=== PATIENT | female | born 1955 | race Caucasian/White ===

== ENCOUNTER 2020-10-11 14:03 | Outpatient (CLI) | payer MEDICARE, SELFPAY ==
--- NOTE | ~2020-10-11 | CT_ITS ---
EXAMINATION: CT shoulder RT wo con DATE: 10/11/2020 14:36 INDICATION: Right shoulder instability. TECHNIQUE: Computed tomography (CT) of the right shoulder was performed without intravenous contrast. Automated exposure control and iterative reconstruction technique were employed. The dose-length pro duct was 621.96 mGy-cm. COMPARISON: Right shoulder radiographs 02/14/2006 FINDINGS: There is anterior and superior subluxation of humeral head with respect to glenoid. There i s narrowing of the subacromial region, consistent with rotator cuff tear. Subacromial impingement is noted. There is mild osteoarthritis of glenohumeral joint and severe osteoarthritis of acromioclavicu lar joint. There is a 5 mm loose body in the glenohumeral joint. There is a large glenohumeral joint effusion. There is volume loss and moderate fatty atrophy of subscapularis muscle belly. There is vol ume loss and mild fatty atrophy of supraspinatus and infraspinatus muscle bellies. IMPRESSION: 1. Polyarticular osteoarthritis. 2. Rotator cuff tear. 3. Large glenohumeral joint effusion with loose body. Reviewed, dictated and finalized at location A.
== END 2020-10-11 14:04 | disposition home or self-care (01) ==
LOC: ANHIMG 14:04
PROVIDERS: PCP Nurse Practitioner Adult Health; Visit Provider Orthopaedic Surgery
DX: M19.011 Primary osteoarthritis, right shoulder (principal); M75.101 Unspecified rotator cuff tear or rupture of right shoulder, not specified as traumatic; M25.411 Effusion, right shoulder
CPT/HCPCS: 73200

== ENCOUNTER → 2021-05-09 00:48 | Outpatient (CLI) | payer MEDICARE, SELFPAY ==
[2021-05-10 10:57] LABS: SARS-CoV-2 RNA PCR Negative
== END ==
PROVIDERS: PCP Nurse Practitioner Adult Health; Visit Provider Nurse Practitioner Adult Health
DX: R06.2 Wheezing (principal); Z20.822 Contact with and (suspected) exposure to COVID-19
CPT/HCPCS: C9803; U0003; U0005

== ENCOUNTER 2021-05-10 14:59 | Emergency (ER) | payer MEDICARE, SELFPAY ==
--- NOTE | ~2021-05-10 | XR_ITS ---
EXAMINATION: XR chest 1V portable DATE: 05/10/2021 15:32 INDICATION: Shortness of breath. TECHNIQUE: A single frontal view of the chest was obtained. COMPARISON: CT abdomen and pelvis 02/23/2018 FINDINGS: A calcified right lung nodule is consistent with old granulomatous disease. No pleural effu jasson or pneumothorax. The heart size is normal. IMPRESSION: 1. No acute cardiopulmonary disease. Reviewed, dictated and finalized at location A. L GRINDER
[2021-05-10 15:00] VITALS: BP 158/96; PULSE 84; RESP 22; TEMP 36.6; O2SAT 96
[2021-05-10] MEDS: methylPREDNISolone SOD SUCC 125 MG VIAL IV PUSH (15:34)
[2021-05-10 15:49] LABS: Basophils Percent Auto 0.2 % (0.2-1.2); Hematocrit 45.1 % (37.0-47.0); Hemoglobin 15.3 g/dL (12.0-15.0); Immature Granulocyte Percent A 0.8 % (0-0.5); Lymphocytes Absolute Auto 0.65 K/mm3 (0.9-3.2); Lymphocytes Percent Auto 5.1 % (18.3-44.2); Mean Corpuscular HGB Conc 33.9 g/dl (32-36); Mean Corpuscular Hemoglobin 30.8 pg (26-34); Mean Corpuscular Volume 90.7 fl (80-100); Mean Platelet Volume 10.5 fl (7.4-10.4); Monocytes Absolute Auto 0.6 K/mm3 (0.1-0.6); Monocytes Percent Auto 4.7 % (2.6-8.5); Neutrophils Absolute Auto 11.5 K/mm3 (1.3-6.7); Neutrophils Percent Auto 89.2 % (45.5-73.1); Platelet Count Result 126 k/mm3 (150-375); Red Blood Count 4.97 M/mm3 (4.2-5.4); Red Cell Distribution Width 13.5 % (11.5-14.5); White Blood Count 12.8 K/mm3 (4.5-10.0)
[2021-05-10 16:00] LABS: Alanine Aminotransferase 90 U/L (4-35); Albumin Level 4.1 g/dL (3.5-5.1); Alkaline Phosphatase 67 U/L (38-126); Anion Gap 15 mmol/L (8-16); Aspartate Amino Transferase 34 U/L (14-36); Bilirubin,Total 0.5 mg/dL (0.2-1.3); Blood Urea Nitrogen 36 mg/dL (7-17); Calcium 9.1 mg/dL (8.4-10.2); Carbon Dioxide 21 mmol/L (22-30); Chloride 102 mmol/L (98-107); Estimated CRCL calculation 49 ml/min; Estimated Glomerular Filt Rate 45; Glucose 212 mg/dL (65-110); Potassium 4.5 mmol/L (3.4-5.0); Sodium 138 mmol/L (137-145)
[2021-05-10] MEDS: diphenhydrAMINE HCl INJ 50 MG/ML VIAL 25 MG IV PUSH (16:10)
[2021-05-10 16:12] VITALS: BP 143/90; PULSE 80; RESP 20; O2SAT 95
[2021-05-10] MEDS: SODIUM CHLORIDE 0.9% IV 1,000 ML 999 ML IV CONT (16:59)
[2021-05-10 18:43] VITALS: BP 131/78; PULSE 74; RESP 18; TEMP 36.7; O2SAT 98
--- NOTE | 2021-05-10 19:36 | ED.GENADULT ---
HPI - General Adult General Chief complaint: Allergic Reaction Stated complaint: DIFFICULTY BREATHING Time Seen by Provider: 05/10/21 15:13 Source: patient Mode of arrival: ambulatory Limitations: no limitations History of Present Illness HPI narrative: Patient is a 66-year-old female presented with chief complaint of feelings of shortness of breath, throat irritation and swelling that has progressively worsened over the past 6 days since starting kezvara injection 6 days prior for her rheumatoid arthritis. Patient reports that she contacted her provider and was started on a Medrol Dosepak but it has not remitted her symptoms. Patient reports that she has not been eating or drinking as much as he normally would due to her symptoms. Patient denies fever, chills, cough, wheezing, chest pain, syncope. Related Data Home Medications Medication Instructions Recorded Confirmed amitriptyline 10 mg tablet 10 mg PO ONCE 03/13/19 10/20/20 amlodipine 10 mg tablet 10 mg PO DAILY 03/13/19 10/20/20 coenzyme Q10 100 mg capsule 100 mg PO DAILY 03/13/19 10/20/20 metaxalone 800 mg tablet 800 mg PO TID 03/13/19 10/20/20 nebivolol 10 mg tablet 10 mg PO DAILY 03/13/19 10/20/20 oxybutynin chloride 15 mg 15 mg PO DAILY 03/13/19 10/20/20 tablet,extended release 24 hr vilazodone 40 mg tablet 40 mg PO DAILY 03/13/19 10/20/20 zolpidem 12.5 mg tablet,extended 12.5 mg PO ONCE 03/13/19 10/20/20 release,multiphase atorvastatin 20 mg tablet 20 mg PO DAILY 09/13/20 10/20/20 azathioprine 50 mg tablet 50 mg PO DAILY 09/13/20 10/20/20 celecoxib 200 mg capsule 200 mg PO DAILY 09/13/20 10/20/20 icosapent ethyl 1 gram capsule 2 g PO BID 09/13/20 10/20/20 phentermine 37.5 mg capsule 37.5 mg PO DAILY 09/13/20 10/20/20 Allergies Allergy/AdvReac Type Severity Reaction Status Date / Time hydroxychloroquine Allergy Severe vertigo Verified 05/10/21 15:33 Latex, Natural Rubber Allergy Severe SWELLING Verified 05/10/21 15:33 WITH CONTACT methotrexate Allergy Severe Cramping Verified 05/10/21 15:33 of the Muscles tramadol Allergy Severe Vomiting Verified 05/10/21 15:33 latex Allergy Unknown Swelling Verified 05/10/21 15:33 shellfish derived Allergy Unknown Hives Verified 05/10/21 15:33 sulfasalazine Allergy Unknown Cramping Verified 05/10/21 15:33 of the Muscles Contrast Media Allergy Intermediate HIVES, Uncoded 05/10/21 15:03 REDNESS, TROUBLE BREATHING Review of Systems Review of Systems: CONSTITUTIONAL: Denies fever, chills, or sweats. EYES: Denies visual changes, redness, or discharge. ENT: Reports sore throat denies rhinorrhea, congestion, or otalgia. CARDIOVASCULAR: Denies chest pain, palpitations, or edema. RESPIRATORY: Reports dyspnea denies cough GASTROINTESTINAL: Denies abdominal pain, nausea, vomiting, or diarrhea. GENITOURINARY: Denies dysuria or hematuria. SKIN: Denies rash or itching. MUSCULOSKELETAL: Denies back pain, joint pain, or myalgia. NEUROLOGIC: Denies headache, numbness, dizziness, or weakness. PSYCHIATRIC: Denies anxiety or depression. [facility] Past Medical History Medical History (Updated 05/10/21 @ 18:10 by Gil Campbell PA-C) ALETA positive Anxiety Arthritis Counseling on health promotion and disease prevention Depression Encounter for medication management Fibromyalgia Generalized osteoarthritis of multiple sites Hypertension Rheumatoid arthritis with rheumatoid factor of multiple sites without organ or systems involvement (~2017) Surgical History Surgical History H/O: hysterectomy History of biopsy of bladder Family History Family History Father Heart disease Emphysema lung Grandparent Heart disease Mother Heart disease Macular degeneration Dementia Cerebrovascular accident Emphysema lung Social History Social History (Reviewed 12/09/19 @ 14:14 by Efrem Keating
== END 2021-05-10 18:43 | disposition home or self-care (01) ==
PROVIDERS: Physician Assistant; Emergency Provider Emergency Medicine; PCP Nurse Practitioner Adult Health
DX: R06.02 Shortness of breath (principal); R07.0 Pain in throat; T50.995A Adverse effect of other drugs, medicaments and biological substances, initial encounter; M06.9 Rheumatoid arthritis, unspecified; I10 Essential (primary) hypertension; M19.90 Unspecified osteoarthritis, unspecified site; M79.7 Fibromyalgia; F32.A Depression, unspecified; F41.9 Anxiety disorder, unspecified
CPT/HCPCS: 36415; 71045; 80053; 85025; 96361; 96374; 96375; 99284; J1200; J2930; J7030

== ENCOUNTER 2021-12-21 14:41 | Outpatient (CLI) | payer MEDICARE, SELFPAY ==
--- NOTE | 2021-12-21 | ECHO_ITS ---
Patient Info Name: Evelia Wadsworth Age: 66 years : 1955 Gender: Female Ht: 63 in Wt: 258 lbs BSA: 2.35 m2 HR: 66 bpm BP: 148 / 69 mmHg Heart Rhythm: Sinus Rhythm Technical Quality: Fair Exam Date: 12/21/2021 3:03 PM Exam Location: [facility] Pul[facility] Patient Status: Outpatient Admit Date: 12/21/2021 Staff Ordering Physician: JuanMaya NP Insulation Cutter: Rebekah Chisholm RDCS Attending Provider: JuanMaya NP Exam Type: CA echo doppler color flow Study Info Indications R60.0 - Localized edema Complete two-dimensional, color flow and Doppler transthoracic echocardiogram is performed. Summary 1. Complete two-dimensional, color flow and Doppler transthoracic echocardiogram is performed. 2. Left ventricular chamber dimension is normal. 3. Left ventricular systolic function is normal, estimated at 65-70%. 4. The left ventricular diastolic function is grade I diastolic dysfunction. 5. E/e' 21 is elevated. 6. There is mild aortic valve sclerosis. 7. There is mild aortic valve stenosis with a peak velocity of 198 cm/s, mean gradient of 8 mmHg, and aortic valve area of 1.9 cm2. 8. The mitral valve has moderately calcified annulus. 9. No pulmonary hypertension, estimated pulmonary arterial systolic pressure is 20 mmHg. Left Ventricle E/e' 21 is elevated. Left ventricular chamber dimension is normal. Left ventricular systolic function is normal, estimated at 65-70%. The left ventricular diastolic function is grade I diastolic dysfunction. Right Ventricle Right ventricular systolic function is normal and with normal TAPSE 2.1 cm. Right ventricular chamber dimension is normal. Left Atria Left atrial chamber dimension is normal. Right Atria Right atrial chamber dimension is normal. Aortic Valve The aortic valve is trileaflet. There is mild aortic valve sclerosis. There is mild aortic valve stenosis with a peak velocity of 198 cm/s, mean gradient of 8 mmHg, and aortic valve area of 1.9 cm2. There is no aortic valve regurgitation. Pulmonic Valve There is no pulmonic regurgitation. Mitral Valve The mitral valve has moderately calcified annulus. There is no mitral valve stenosis. There is no mitral valve regurgitation. Tricuspid Valve There is no tricuspid valve regurgitation. No pulmonary hypertension, estimated pulmonary arterial systolic pressure is 20 mmHg. Pericardium/Pleural There is no pericardial effusion. Inferior Vena Cava Normal inferior vena cava with >50% collapse upon inspiration consistent with normal right atrial pressure, 5 mmHg. Aorta The aortic root size at the sinus of Valsalva is normal. Left Ventricular Outflow Tract Name Value Normal LVOT 2D LVOT Diameter 2.0 cm LVOT Doppler LVOT Peak Gradient 5 mmHg LVOT Mean Gradient 3 mmHg LVOT VTI 26 cm LVOT VTI/AV VTI Ratio 0.6 LVOT Stroke Volume 81 ml LVOT CO 5.3 l/min LVOT CI
== END 2021-12-21 14:42 | disposition home or self-care (01) ==
LOC: ANHCARD 14:42
PROVIDERS: PCP Nurse Practitioner Adult Health; Visit Provider Nurse Practitioner Adult Health
DX: R60.0 Localized edema (principal)
CPT/HCPCS: 93306

== ENCOUNTER 2021-12-22 14:22 | Emergency (ER) | payer MEDICARE, SELFPAY ==
--- NOTE | ~2021-12-22 | XR_ITS ---
XR chest 2V DATE: 12/22/2021 18:14 INDICATION: Edema TECHNIQUE: PA and lateral views COMPARISON: 05/10/2021 portable AP chest FINDINGS: Normal heart size. Aortic arch calcification. No hilar or mediastinal enlargement. Calcified right lower lung pulmonary granuloma and calcified hilar and mediastinal nodes, consistent with old pulmonary granulomatous disease. No pulmonary infiltrate or consolidation, pleural effusion or pulmonary vascular congestion or pneumo thorax is detected. Degenerative changes of the thoracic and lumbar spine. IMPRESSION: No active cardiopulmonary disease Reviewed, dictated and finalized at location B.
--- NOTE | ~2021-12-22 | US_ITS ---
EXAMINATION: US venous doppler [facility] DATE: 12/22/2021 18:48 INDICATION: Lower limb pain, swelling and erythema TECHNIQUE: Grayscale ultrasound images without and with compression and Doppler ultrasound images of the bilateral lower extremity veins were obtained. COMPARISON: None. FINDINGS: The visualized portions of right common femoral vein, profunda (deep) femoral vein, femoral vein, pop liteal vein, posterior tibial veins, peroneal veins, gastrocnemius vein and greater saphenous vein ou tflow are patent. Again seen is a moderate-sized Alexander's cyst measuring 3.5 x 3.9 cm at the right pop liteal fossa. The visualized portions of left common femoral vein, profunda femoral vein, femoral vein, popliteal v ein, posterior tibial veins, peroneal veins, gastrocnemius vein and greater saphenous vein outflow ar e patent. IMPRESSION: 1. No deep venous thrombosis in either lower limb. 2. Moderate-sized right Alexander's cyst. Reviewed, dictated and finalized at location A.
--- NOTE | ~2021-12-22 | XR_ITS ---
XR knee LT min 4V DATE: 12/22/2021 18:14 INDICATION: Left knee pain TECHNIQUE: 4 views COMPARISON: None FINDINGS: There is prominent periarticular spurring at all 3 compartments and prominent joint space n arrowing at the medial compartment as well as probable patellofemoral compartment joint space narrowi ng. There is soft tissue prominence of the suprapatellar bursa area suggesting joint effusion. No fracture, dislocation, periosteal reaction or bone destruction is detected. No chondrocalcinosis or radiopaque intra-articular loose body is noted. IMPRESSION: Joint effusion Tricompartment osteoarthritis, most prominent at the medial and patellofemoral compartments Reviewed, dictated and finalized at location B.
[2021-12-22 14:36] VITALS: BP 166/64; PULSE 71; RESP 16; TEMP 36.6; O2SAT 96
--- NOTE | 2021-12-22 17:44 | ED.SKABFB ---
HPI - Skin/Abscess/Foreign Bdy General Chief complaint: Skin/Abscess/Foreign Body <Katherine Fraga PA-C - Last Filed: 12/22/21 20:11> Stated complaint: lower leg cellulitis <Katherine Fraga PA-C - Last Filed: 12/22/21 20:11> Time Seen by Provider: 12/22/21 17:25 <JONA Muller Last Filed: 12/22/21 20:11> Source: patient <Katherine Fraga PA-C - Last Filed: 12/22/21 20:11> Mode of arrival: ambulatory <JONA Muller Last Filed: 12/22/21 20:11> Limitations: no limitations <Katherine Fraga PA-C - Last Filed: 12/22/21 20:11> History of Present Illness HPI narrative: This is a 66-year-old female that presents to the emergency department for bilateral lower extremity edema. Ongoing for some time. Has been seen by her primary provider for this. She has finished 10 days of doxycycline for cellulitis without relief. 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 Denies fever, chest pain, shortness of breath. <Katherine Fraga PA-C - Last Filed: 12/22/21 20:11> Related Data Home medications: Home Medications Medication Instructions Recorded Confirmed amitriptyline 10 mg tablet 10 mg PO ONCE 03/13/19 10/20/20 amlodipine 10 mg tablet 10 mg PO DAILY 03/13/19 10/20/20 coenzyme Q10 100 mg capsule 100 mg PO DAILY 03/13/19 10/20/20 (CoQ-10) metaxalone 800 mg tablet 800 mg PO TID 03/13/19 10/20/20 nebivolol 10 mg tablet (Bystolic) 10 mg PO DAILY 03/13/19 10/20/20 oxybutynin chloride 15 mg 15 mg PO DAILY 03/13/19 10/20/20 tablet,extended release 24 hr vilazodone 40 mg tablet (Viibryd) 40 mg PO DAILY 03/13/19 10/20/20 zolpidem 12.5 mg tablet,extended 12.5 mg PO ONCE 03/13/19 10/20/20 release,multiphase atorvastatin 20 mg tablet 20 mg PO DAILY 09/13/20 10/20/20 azathioprine 50 mg tablet 50 mg PO DAILY 09/13/20 10/20/20 celecoxib 200 mg capsule 200 mg PO DAILY 09/13/20 10/20/20 icosapent ethyl 1 gram capsule 2 g PO BID 09/13/20 10/20/20 phentermine 37.5 mg capsule 37.5 mg PO DAILY 09/13/20 10/20/20 <Katherine Fraga PA-C - Last Filed: 12/22/21 20:11> Allergies/Adverse reactions: Allergies Allergy/AdvReac Type Severity Reaction Status Date / Time hydroxychloroquine Allergy Severe vertigo Verified 05/10/21 15:33 Latex, Natural Rubber Allergy Severe SWELLING Verified 05/10/21 15:33 WITH CONTACT methotrexate Allergy Severe Cramping Verified 05/10/21 15:33 of the Muscles tramadol Allergy Severe Vomiting Verified 05/10/21 15:33 latex Allergy Unknown Swelling Verified 05/10/21 15:33 shellfish derived Allergy Unknown Hives Verified 05/10/21 15:33 sulfasalazine Allergy Unknown Cramping Verified 05/10/21 15:33 of the Muscles Contrast Media Allergy Intermediate HIVES, Uncoded 05/10/21 15:03 REDNESS, TROUBLE BREATHING <Katherine Fraga PA-C - Last Filed: 12/22/21 20:11> Review of Systems Review of Systems: CONSTITUTIONAL: Denies fever CARDIOVASCULAR: Reports edema. Denies chest pain RESPIRATORY: Denies dyspnea. <Katherine Fraga PA-C - Last Filed: 12/22/21 20:11> All systems reviewed & are unremarkable except as noted in HPI and below <Katherine Fraga PA-C - Last Filed: 12/22/21 20:11> [facility] Past Medical History Medical History: Medical History (Updated 12/22/21 @ 20:11 by Katherine Fraga PA-C) ALETA positive Anxiety Arthritis Counseling on health promotion and disease prevention Depression Encounter for medication management Fibromyalgia Generalized osteoarthritis of multiple sites Hypertension Rheumatoid arthritis with rheumatoid factor of multiple sites without organ or systems involvement (~2016) <Katherine Fraga PA-C - Last Filed: 12/22/21 20:11> Surgical History Surgical History: Surgical History H/O: hysterectomy History of biopsy of bladder <Katherine Fraga PA-C - Last Filed: 12/22/21 20:11> Family History Family History:
[2021-12-22 18:00] VITALS: BP 170/70; PULSE 72; RESP 20; TEMP 36.8; O2SAT 100
[2021-12-22 18:01] LABS: Basophils Percent Auto 0.4 % (0.2-1.2); Eosinophils Absolute Auto 0.1 K/mm3 (0-0.3); Eosinophils Percent Auto 0.6 % (0-4.4); Hematocrit 41.5 % (37.0-47.0); Hemoglobin 13.2 g/dL (12.0-15.0); Immature Granulocyte Absolute 0.03 K/mm3 (0.00-0.031); Immature Granulocyte Percent A 0.3 % (0-0.5); Lymphocytes Absolute Auto 0.95 K/mm3 (0.9-3.2); Lymphocytes Percent Auto 10.1 % (18.3-44.2); Mean Corpuscular HGB Conc 31.8 g/dl (32-36); Mean Corpuscular Hemoglobin 29.4 pg (26-34); Mean Corpuscular Volume 92.4 fl (80-100); Mean Platelet Volume 10.2 fl (7.4-10.4); Monocytes Absolute Auto 0.4 K/mm3 (0.1-0.6); Monocytes Percent Auto 4.5 % (2.6-8.5); Neutrophils Absolute Auto 7.9 K/mm3 (1.3-6.7); Neutrophils Percent Auto 84.1 % (45.5-73.1); Platelet Count Result 197 k/mm3 (150-375); Red Blood Count 4.49 M/mm3 (4.2-5.4); Red Cell Distribution Width 14.5 % (11.5-14.5); White Blood Count 9.4 K/mm3 (4.5-10.0)
[2021-12-22 18:19] LABS: Anion Gap 6 mmol/L (8-16); Blood Urea Nitrogen 22 mg/dL (7-17); CRP 2.9 mg/dL (<1.0); Calcium 9.6 mg/dL (8.4-10.2); Carbon Dioxide 32 mmol/L (22-30); Chloride 98 mmol/L (98-107); Estimated CRCL calculation 62 ml/min; Estimated Glomerular Filt Rate 55; Glucose 110 mg/dL (65-110); Potassium 4.5 mmol/L (3.4-5.0); Sodium 136 mmol/L (137-145)
[2021-12-22 18:37] LABS: NT Pro B Type Natriuretic Pept 155 pg/mL (5-100)
[2021-12-22 19:00] VITALS: BP 182/80; PULSE 82; RESP 20; TEMP 36.3; O2SAT 98
[2021-12-22 19:11] LABS: Erythrocyte Sedimentation Rate 20 mm/hr (0-20)
[2021-12-22 20:15] VITALS: BP 168/70; PULSE 74; RESP 20; TEMP 36.8; O2SAT 98
== END 2021-12-22 20:15 | disposition home or self-care (01) ==
PROVIDERS: Physician Assistant; Emergency Provider Emergency Medicine; PCP Nurse Practitioner Adult Health
DX: R60.0 Localized edema (principal); I10 Essential (primary) hypertension; M05.79 Rheumatoid arthritis with rheumatoid factor of multiple sites without organ or systems involvement; M79.7 Fibromyalgia; M17.12 Unilateral primary osteoarthritis, left knee; F41.9 Anxiety disorder, unspecified; F32.A Depression, unspecified; Z86.718 Personal history of other venous thrombosis and embolism; Z90.710 Acquired absence of both cervix and uterus; M71.22 Synovial cyst of popliteal space [Baker], left knee
CPT/HCPCS: 36415; 71046; 73564; 80048; 83880; 85025; 85652; 86140; 93970; 99284

== ENCOUNTER 2023-07-22 12:47 | Observation (INO) | payer MEDICARE, SELFPAY ==
[2023-07-22] VITALS (11 sets, daily range): BP systolic 124–159; BP diastolic 57–86; PULSE 64–75; RESP 15–18; TEMP 36.4–36.9; O2SAT 88–100; BMI 46.5
--- NOTE | ~2023-07-22 | CT_ITS ---
EXAMINATION: CT cervical spine wo con DATE: 07/22/2023 14:11 INDICATION: Fall. TECHNIQUE: Computed tomography (CT) of the cervical spine was performed without intravenous contrast. Automated exposure control and iterative reconstruction technique were employed. The dose-length pro duct was 494.66 mGy-cm. COMPARISON: None FINDINGS: There is 2 mm anterolisthesis of C4 on C5. Vertebral body heights are normal. There is mild ly decreased disc height at C2-C3, severely decreased disc height at C3-C4, moderately decreased disc height at C4-C5, and severely decreased disc height from C5-C6 through C7-T1. The following disc lev els are specifically discussed: C2-C3: There is mild bilateral uncovertebral joint osteoarthritis. There is severe bilateral facet stevan int osteoarthritis. There is no neural foraminal stenosis. There is no central canal stenosis. C3-C4: There is severe bilateral uncovertebral joint osteoarthritis. There is severe bilateral facet joint osteoarthritis. There is moderate right and mild left neural foraminal stenosis. There is mild central canal stenosis. C4-C5: There is moderate bilateral uncovertebral joint osteoarthritis. There is severe bilateral face t joint osteoarthritis. There is mild bilateral neural foraminal stenosis. There is mild central kaye l stenosis. C5-C6: There is severe bilateral uncovertebral joint osteoarthritis. There is moderate right and baldo re left facet joint osteoarthritis. There is mild bilateral neural foraminal stenosis. There is mild central canal stenosis. C6-C7: There is severe bilateral uncovertebral joint osteoarthritis. There is moderate bilateral face t joint osteoarthritis. There is mild bilateral neural foraminal stenosis. There is mild central kaye l stenosis. C7-T1: There is severe bilateral uncovertebral joint osteoarthritis. There is severe bilateral facet joint osteoarthritis. There is mild bilateral neural foraminal stenosis. There is mild central canal stenosis. IMPRESSION: 1. No fracture. 2. Severe cervical spondylosis. Reviewed, dictated and finalized at location E.
--- NOTE | ~2023-07-22 | CT_ITS ---
EXAMINATION: CT brain wo con DATE: 07/22/2023 14:11 INDICATION: Fall. TECHNIQUE: Computed tomography (CT) of the head was performed without intravenous contrast. The mA wa s adjusted according to patient size. Iterative reconstruction technique was employed. The dose-lengt h product was 605.33 mGy-cm. COMPARISON: None FINDINGS: There is no intracranial hemorrhage, acute infarction, or abnormal intracranial mass lesion . There are scattered areas of low attenuation in the cerebral white matter, which is within normal l imits for the patient's age. The ventricles are normal in size. The orbits are normal. There is mild mucosal thickening in the ethmoid sinuses. The mastoid air cells are normal. IMPRESSION: 1. Normal aging brain. Reviewed, dictated and finalized at location E. IMPRESSION: 1. Normal aging brain.
--- NOTE | ~2023-07-22 | US_ITS ---
EXAMINATION: US venous doppler [facility] DATE: 07/23/2023 18:16 INDICATION: Lower limb edema. TECHNIQUE: Grayscale ultrasound images without and with compression and Doppler ultrasound images of the bilateral lower extremity veins were obtained. COMPARISON: Ultrasound 12/22/2021 FINDINGS: The visualized portions of right common femoral vein, profunda (deep) femoral vein, popliteal vein, p eroneal veins, posterior tibial veins, and greater saphenous vein outflow are patent. There is thromb us in right femoral vein. The visualized portions of left common femoral vein, profunda femoral vein, popliteal vein, peroneal veins, posterior tibial veins, and greater saphenous vein outflow are patent. There is thrombus in le ft femoral vein. IMPRESSION: 1. Acute deep vein thrombosis in the femoral veins bilaterally. I discussed this result with Letty Kingsley. Reviewed, dictated and finalized at location A. IMPRESSION: 1. Acute deep vein thrombosis in the femoral veins bilaterally. I discussed th is result with Letty Kingsley.
--- NOTE | ~2023-07-22 | XR_ITS ---
EXAMINATION: XR chest 1V DATE: 07/22/2023 14:24 INDICATION: Fall. Right shoulder pain. TECHNIQUE: A single frontal view of the chest was obtained. COMPARISON: Chest 2 views 12/22/2021, CT abdomen and pelvis 02/23/2018 FINDINGS: Calcified right lung nodules and calcified right hilar lymph nodes are consistent with old granulomatous disease. No pleural effusion or pneumothorax. The heart size is normal. IMPRESSION: 1. No acute cardiopulmonary disease. Reviewed, dictated and finalized at location E.
--- NOTE | ~2023-07-22 | US_ITS ---
EXAMINATION: US carotid duplex BI DATE: 07/23/2023 18:16 INDICATION: Syncope. TECHNIQUE: Grayscale, color Doppler, and pulsed Doppler images of the cervical carotid arteries were obtained. The degree of vessel stenosis is placed in one of the following categories: normal, <50%, 5 0-69%, >=70% but less than near-occlusion, near-occlusion, or total occlusion. Note that percent sten osis relative to normal distal artery lumen diameter is indirectly measured from velocity measurement s as described by Jelani, et al. Radiology 2003; 229:340-346. COMPARISON: None. FINDINGS: RIGHT: The right common carotid artery (CCA) peak systolic velocity (PSV) is 142 cm/s. The right internal ca rotid artery (ICA) PSV is 69 cm/s. The right ICA end-diastolic velocity (EDV) is 19 cm/s. The right I CA/CCA PSV ratio is 0.5. Grayscale and color Doppler images yield an estimate of <50% diameter reduct ion from plaque in the ICA. There is antegrade flow in the right vertebral artery. LEFT: The left CCA PSV is 105 cm/s. The left ICA PSV is 94 cm/s. The left ICA EDV is 25 cm/s. The left ICA/ CCA PSV ratio is 0.9. Grayscale and color Doppler images yield an estimate of <50% diameter reduction from plaque in the ICA. There is antegrade flow in the left vertebral artery. IMPRESSION: 1. <50% stenosis in the right internal carotid artery. 2. <50% stenosis in the left internal carotid artery. Reviewed, dictated and finalized at location A.
--- NOTE | ~2023-07-22 | XR_ITS ---
EXAMINATION: XR shoulder RT min 2V DATE: 07/22/2023 14:24 INDICATION: Right shoulder injury. Fall. TECHNIQUE: 4 views of right shoulder were obtained. COMPARISON: Right shoulder radiographs 02/14/2006 FINDINGS: There is anterior subluxation of humeral head with respect to glenoid. No fracture. There i s severe osteoarthrosis of glenohumeral joint and acromioclavicular joint. Calcified right lung nodul es and calcified right hilar lymph nodes are consistent with old granulomatous disease. IMPRESSION: 1. Polyarticular osteoarthritis. Reviewed, dictated and finalized at location E.
--- NOTE | ~2023-07-22 | XR_ITS ---
EXAMINATION: XR knee LT 3V DATE: 07/22/2023 14:24 INDICATION: Left knee injury and pain. TECHNIQUE: 3 views of left knee were obtained. COMPARISON: Left knee radiographs 12/22/2021 FINDINGS: Bone alignment is normal. No fracture. There is severe osteoarthritis of medial and patello femoral compartments and moderate osteoarthritis of lateral compartment. There is a moderate-sized kn ee joint effusion with loose bodies. IMPRESSION: 1. Severe left knee osteoarthritis. 2. Moderate-sized left knee joint effusion with loose bodies. Reviewed, dictated and finalized at location E.
--- NOTE | 2023-07-22 12:57 | ECG_ITS ---
Measurements Intervals [place] Rate: 70 P: 43 OR: 206 QRS: -15 QRSD: 109 T: 32 QT: 386 QTc: 418 Interpretive Statements SINUS RHYTHM BORDERLINE R WAVE PROGRESSION, ANTERIOR LEADS BORDERLINE ST-T WAVE ABNORMALITY- ANTERIOR LEADS BASELINE ARTIFACT- V6 BORDERLINE ECG NO PREVIOUS ECG AVAILABLE FOR COMPARISON Electronically Signed On 07-22-2023 19:48:38 CDT by Henry Ba D.O.
--- NOTE | 2023-07-22 13:01 | ED.FALL ---
HPI - Fall General Chief Complaint: Fall Stated Complaint: fall Time Seen by Provider: 07/22/23 13:00 Source: patient and EMS Mode of arrival: EMS History of Present Illness HPI Narrative: 68 YEARS OLD WHITE FEMALE CAME FROM HOME BY AMBULANCE BECAUSE OF ROLLED OVER BED TODAY AND COULD NOT GET OF THE FLOOR. PATIENT HAVE MULTIPLE FALLS OVER THE LAST 3 DAYS LAST 1 WAS 2 DAYS AGO, IN THE LAYING DOWN ON THE FLOOR FOR 36 HOURS UNTIL AMBULANCE ARRIVED. DECLINED TO COME TO THE HOSPITAL AT THAT TIME. TODAY COULD NOT HELP IT AND AGREED TO COME TO THE HOSPITAL. LAST FOOD INTAKE WAS 48 HOURS AGO. PATIENT REPORTS RIGHT SHOULDER PAIN AND LEFT KNEE PAIN. SHE DENIES ANY HEAD INJURY. SHE REPORTED HAVE HEAD INJURY FEW DAYS AGO FROM 1 OF THE FALL. HISTORY OF CHRONIC RIGHT SHOULDER PAIN SECONDARY TO DISLOCATION 2 YEARS AGO AND ANOTHER DISLOCATION 2 MONTHS AGO WITHOUT ANY ER VISIT AT THAT TIME, LAST FALL THIS MORNING AGGRAVATED THE CHRONIC RIGHT SHOULDER PAIN. PATIENT DROVE TO HER ORTHOPEDIC 3 DAYS AGO AND COULD NOT SEE HIM AT THAT TIME. Related Data Home Medications Medication Instructions Recorded Confirmed amitriptyline 10 mg tablet 10 mg PO ONCE 03/13/19 10/20/20 amlodipine 10 mg tablet 10 mg PO DAILY 03/13/19 10/20/20 coenzyme Q10 100 mg capsule 100 mg PO DAILY 03/13/19 10/20/20 (CoQ-10) metaxalone 800 mg tablet 800 mg PO TID 03/13/19 10/20/20 nebivolol 10 mg tablet (Bystolic) 10 mg PO DAILY 03/13/19 10/20/20 oxybutynin chloride 15 mg 15 mg PO DAILY 03/13/19 10/20/20 tablet,extended release 24 hr vilazodone 40 mg tablet (Viibryd) 40 mg PO DAILY 03/13/19 10/20/20 zolpidem 12.5 mg tablet,extended 12.5 mg PO ONCE 03/13/19 10/20/20 release,multiphase atorvastatin 20 mg tablet 20 mg PO DAILY 09/13/20 10/20/20 azathioprine 50 mg tablet 50 mg PO DAILY 09/13/20 10/20/20 celecoxib 200 mg capsule 200 mg PO DAILY 09/13/20 10/20/20 icosapent ethyl 1 gram capsule 2 g PO BID 09/13/20 10/20/20 phentermine 37.5 mg capsule 37.5 mg PO DAILY 09/13/20 10/20/20 Allergies Allergy/AdvReac Type Severity Reaction Status Date / Time hydroxychloroquine Allergy Severe vertigo Verified 07/22/23 12:56 Latex, Natural Rubber Allergy Severe SWELLING Verified 07/22/23 12:56 WITH CONTACT methotrexate Allergy Severe Cramping Verified 07/22/23 12:56 of the Muscles tramadol Allergy Severe Vomiting Verified 07/22/23 12:56 latex Allergy Unknown Swelling Verified 07/22/23 12:56 shellfish derived Allergy Unknown Hives Verified 07/22/23 12:56 sulfasalazine Allergy Unknown Cramping Verified 07/22/23 12:56 of the Muscles Contrast Media Allergy Intermediate HIVES, Uncoded 07/22/23 12:56 REDNESS, TROUBLE BREATHING Review of Systems Review of Systems: All systems reviewed & are unremarkable except as noted in HPI and below PMFSH Past Medical History Medical History (Updated 07/22/23 @ 15:49 by Ashlie Madison PA-C) ALETA positive Anxiety Depression Fibromyalgia Generalized osteoarthritis of multiple sites Hyperlipidemia Hypertension Rheumatoid arthritis with rheumatoid factor of multiple sites without organ or systems involvement (~2017) Surgical History Surgical History (Updated 07/22/23 @ 15:23 by Ashlie Madison PA-C) History of biopsy of bladder History of hysterectomy Family History Family History Father Heart disease Emphysema lung Grandparent Heart disease Mother Heart disease Macular degeneration Dementia Cerebrovascular accident Emphysema lung Social History Social History (Updated 07/22/23 @ 15:39 by Ashlie Madison PA-C) Social History: Surrogate medical decision maker: Homero Bearden, friend. Code status: Full code. Smoking status: Never smoker Alcohol intake: never Additional living arrangements comments: The patient lives in her own home. She has 2 kittens. Exam Narrative: GENERAL APPEARANCE: W
[2023-07-22 13:09] LABS: Basophils Absolute Auto 0.1 K/mm3 (0.0-0.1); Basophils Percent Auto 0.6 % (0.2-1.2); Eosinophils Absolute Auto 0.2 K/mm3 (0-0.3); Eosinophils Percent Auto 2.6 % (0-4.4); Hematocrit 36.5 % (37.0-47.0); Hemoglobin 11.6 g/dL (12.0-15.0); Immature Granulocyte Absolute 0.04 K/mm3 (0.00-0.031); Immature Granulocyte Percent A 0.5 % (0-0.5); Lymphocytes Absolute Auto 1.42 K/mm3 (0.9-3.2); Lymphocytes Percent Auto 17.7 % (18.3-44.2); Mean Corpuscular HGB Conc 31.8 g/dl (32-36); Mean Corpuscular Hemoglobin 30.4 pg (26-34); Mean Corpuscular Volume 95.8 fl (80-100); Mean Platelet Volume 10.5 fl (7.4-10.4); Monocytes Percent Auto 12.6 % (2.6-8.5); Neutrophils Absolute Auto 5.3 K/mm3 (1.3-6.7); Platelet Count Result 233 k/mm3 (150-375); Red Blood Count 3.81 M/mm3 (4.2-5.4); Red Cell Distribution Width 15.6 % (11.5-14.5)
[2023-07-22 13:23] LABS: Alanine Aminotransferase 20 U/L (6-35); Albumin Level 3.8 g/dL (3.5-5.1); Alkaline Phosphatase 81 U/L (38-126); Anion Gap 3 mmol/L (4-12); Aspartate Amino Transferase 33 U/L (14-36); Bilirubin,Total 0.8 mg/dL (0.2-1.3); Blood Urea Nitrogen 15 mg/dL (7-17); Calcium 9.2 mg/dL (8.4-10.2); Carbon Dioxide 29 mmol/L (22-30); Chloride 104 mmol/L (98-107); Estimated CRCL calculation 80 ml/min; Estimated Glomerular Filt Rate > 60; Glucose 92 mg/dL (65-110); Potassium 3.5 mmol/L (3.4-5.0); Sodium 136 mmol/L (137-145)
[2023-07-22 13:31] LABS: Appearance Urine Clear (Clear); Bacteria Urine None Seen /hpf; Bilirubin Urine Negative (Negative); Blood Urine Negative (Negative); Color Urine Dark Yellow (Yellow); Glucose Urine UA Negative (Negative); Ketones Urine Trace mg/dL (Negative); Leukocyte Esterase Ur Negative LEU/UL (Negative); Nitrate Urine Negative (Negative); Non Pathogenic Casts 0-2; Protein Urine Trace mg/dL (Negative); RBC Urine 0-2 /hpf (0-2); Specific Grav Ur 1.029 (1.001-1.035); Squamous Epithelial Cell Urine None Seen /hpf (Few); Urobilinogen Urine 0.2 mg/dL (<2.0); WBC Urine 0-5 /hpf (0-3)
[2023-07-22 13:32] LABS: Add Urine Microscopic? YES
[2023-07-22] MEDS: SODIUM CHLORIDE 0.9% IV 1,000 ML 999 ML IV CONT (15:21)
--- NOTE | 2023-07-22 15:22 | PM.IMHP ---
H&P: HPI History of Present Illness Date/Time: 07/22/23 15:20 Chief Complaint: Fall. Narrative: This is a pleasant 68-year-old female with rheumatoid arthritis, hypertension, hyperlipidemia, anxiety, and depression who presented to the emergency department via EMS from home for evaluation after a fall. The patient provides the following history. She had a doctor's appointment on Sunday and sustained a fall at that time after slipping on some gravel. She did not sustain any injuries and was able to go home without issue. Later that afternoon she had another fall however does not recall how she fell and she wonders if she may have blacked out. She woke up on her back on the floor and was unable to get herself up so she lay on the floor for upwards of 36 hours before calling EMS for lift assist. She declined transport at that time. Today she fell while trying to get out of bed and decided to come in for evaluation. She complains of ongoing pain in her right shoulder which is not necessarily unusual for her and pain in her left knee from the fall. She endorses dysuria but is currently on ciprofloxacin for a urinary tract infection. She has had some loose stools as well. She denies headache, visual changes, focal weakness, paresthesias, facial droop, difficulty speaking and swallowing, fever, chills, sweats, cold and flu symptoms, chest and pleuritic pain, shortness of breath, nausea, and vomiting. In the ED: She was afebrile on arrival with stable blood pressures. Labs were significant for WBC count of 8.0, hemoglobin 11.6, sodium 136, BUN 15, creatinine 0.80. urine was positive for trace ketones. Brain CT showed no acute findings. Cervical spine CT showed no fracture but did note severe cervical spondylosis. Left knee x-ray showed severe left knee osteoarthritis and moderate size left knee joint effusion with loose bodies. Right shoulder x-ray showed polyarticular osteoarthritis. Chest x-ray showed no acute cardiopulmonary disease. EKG showed a sinus rhythm with normal intervals and no ST segment elevations or depressions. She is being admitted in this setting for possible syncope workup and PT/ OT evaluation. Review of Systems Review of Systems: Twelve systems were reviewed and are negative except for as per HPI. [facility] Past Medical History Medical History (Updated 07/22/23 @ 15:49 by Ashlie Madison PA-C) ALETA positive Anxiety Depression Fibromyalgia Generalized osteoarthritis of multiple sites Hyperlipidemia Hypertension Rheumatoid arthritis with rheumatoid factor of multiple sites without organ or systems involvement (~2017) Surgical History Surgical History (Updated 07/22/23 @ 15:23 by Ashlie Madison PA-C) History of biopsy of bladder History of hysterectomy Family History Family History Father Heart disease Emphysema lung Grandparent Heart disease Mother Heart disease Macular degeneration Dementia Cerebrovascular accident Emphysema lung Social History Social History Social History: Surrogate medical decision maker: Homerojeyson Bearden, friend. Code status: Full code. Smoking status: Never smoker Alcohol intake: former Do You Feel Safe in your Home?: Yes Lack of Transportation: No Lack of Food: Never True Current Housing: I Have Housing Concerned About Future Housing: No Difficulty Paying Gas/Electric Bills: No Difficulty Paying for Meds: No Currently Unemployed: No Education: Master's Degree or Higher Difficulty w/ Childcare or Family Care: No Additional living arrangements comments: The patient lives in her own home. She has 2 kittens. Spiritual care concerns: No Meds Home Medications and Allergies Home Medications Medication Instructions Recorded Confirmed Type nebivolol 10 mg tablet (Bystolic) 10 mg PO DAILY 03/13/19 07/22/23 History azathioprine
[2023-07-22 15:41] LABS: INR 1.3; Prothrombin Time 16.9 Seconds (11.1-14.7)
[2023-07-22 15:42] LABS: Partial Thromboplastin Time 31.8 Seconds (22.3-36.8)
[2023-07-22 15:44] LABS: Lactic Acid Reflex 0.9 mmol/L (0.7-2.0)
[2023-07-22 15:47] LABS: Creatine Kinase 153 U/L (30-135)
[2023-07-22 15:52] LABS: Alanine Aminotransferase 19 U/L (6-35); Albumin Level 3.5 g/dL (3.5-5.1); Alkaline Phosphatase 72 U/L (38-126); Anion Gap 6 mmol/L (4-12); Aspartate Amino Transferase 33 U/L (14-36); Bilirubin,Total 0.8 mg/dL (0.2-1.3); Blood Urea Nitrogen 16 mg/dL (7-17); Carbon Dioxide 28 mmol/L (22-30); Chloride 104 mmol/L (98-107); Estimated CRCL calculation 91 ml/min; Estimated Glomerular Filt Rate > 60; Glucose 92 mg/dL (65-110); Potassium 3.6 mmol/L (3.4-5.0); Sodium 138 mmol/L (137-145)
[2023-07-22 16:08] LABS: CRP 12.4 mg/dL (<1.0)
[2023-07-22] MEDS: ACETAMINOPHEN 325 MG TABLET 650 MG PO (17:01)
[2023-07-22] MEDS: SODIUM CHLORIDE 0.9% IV 1,000 ML 125 ML IV CONT (17:02)
[2023-07-22] MEDS: ONDANSETRON INJ 4 MG/2 ML VIAL IV PUSH (17:11)
[2023-07-22] MEDS: MORPHINE SULFATE (*CRX) 2 MG/ML INJ IV PUSH (17:11)
--- NOTE | 2023-07-22 17:53 | ADMGEN ---
This patient, Evelia Wadsworth, was admitted to Medical Room 246-01. Patient/family oriented to hospital policies and general routines including ID bracelet, bed and alarms, visiting hours, pain management, procedures, bathroom and other care routines, personal items, smoking policy, room service/diet, and visiting hours. Information on how to activate the Rapid Response Team has been discussed. Patient/Family are encouraged to report perceived risks to care and to ask questions if they do not understand what they are told or what they should do.
[2023-07-23] VITALS (14 sets, daily range): BP systolic 137–155; BP diastolic 60–89; PULSE 65–87; RESP 16–20; TEMP 36.6–37.2; O2SAT 91–98
--- NOTE | 2023-07-23 | ECHO_ITS ---
Patient Info Name: Evelia Wadsworth Age: 68 years : 1955 Gender: Female Ht: 63 in Wt: 263 lbs BSA: 2.37 m2 HR: 73 bpm BP: 152 / 60 mmHg Heart Rhythm: Sinus Rhythm Technical Quality: Fair Exam Date: 07/23/2023 9:56 AM Exam Location: Echo Lab Patient Status: Inpatient Admit Date: 07/22/2023 Staff Ordering Physician: Ashlie Madison PA-C Pharmacy Delivery Driver: El Dueñas RDCS Attending Provider: Domingo Gramajo MD Referring Physician: Gricelda PATINO; Exam Type: CA echo doppler color flow Study Info Indications R55 - Syncope and collapse Complete two-dimensional, color flow and Doppler transthoracic echocardiogram is performed. Summary 1. Complete two-dimensional, color flow and Doppler transthoracic echocardiogram is performed. 2. Technically somewhat challenging exam because of obesity. 3. Normal appearing left and right ventricular size and systolic function. 4. Mild calcification in the mitral valve annulus. 5. No valvular dysfunction. 6. Normal sinus rhythm. Left Ventricle Left ventricular chamber dimension is normal. Left ventricular systolic function is normal, estimated at 60-65%. The left ventricular diastolic function is normal. Right Ventricle Right ventricular chamber dimension is normal. Left Atria Left atrial chamber dimension is normal. Right Atria Right atrial chamber dimension is normal. Aortic Valve The aortic valve is normal. Pulmonic Valve The pulmonic valve is not well visualized. Mitral Valve The mitral valve has normal leaflets. The mitral valve annulus is mildly calcified. Tricuspid Valve The tricuspid valve leaflets are normal. Pericardium/Pleural The pericardium appears normal. Aorta The aortic root size at the sinus of Valsalva is normal. Left Ventricular Outflow Tract Name Value Normal LVOT 2D LVOT Diameter 2.1 cm LVOT Doppler LVOT Peak Gradient 4 mmHg LVOT Mean Gradient 2 mmHg LVOT VTI 22 cm LVOT VTI/AV VTI Ratio 0.8 LVOT Stroke Volume 78 ml LVOT CO 5.1 l/min LVOT CI 2.2 l/min/m2 Pulmonic Valve Name Value Normal RVOT Doppler RVOT Peak Gradient 7 mmHg PV Doppler PV Peak Gradient 6 mmHg Mitral Valve Name Value Normal MV Doppler MV Decel Dimmit 635 cm/s2 MV PHT 52 ms MV Area (PHT) 4.2 cm2 4.0-5.0 MV Diastolic F
[2023-07-23 05:32] LABS: Hematocrit 36.2 % (37.0-47.0); Mean Corpuscular HGB Conc 30.4 g/dl (32-36); Mean Corpuscular Hemoglobin 29.8 pg (26-34); Mean Corpuscular Volume 98.1 fl (80-100); Mean Platelet Volume 10.4 fl (7.4-10.4); Platelet Count Result 201 k/mm3 (150-375); Red Blood Count 3.69 M/mm3 (4.2-5.4); Red Cell Distribution Width 15.6 % (11.5-14.5); White Blood Count 5.9 K/mm3 (4.5-10.0)
[2023-07-23 05:42] LABS: Alanine Aminotransferase 19 U/L (6-35); Albumin Level 3.3 g/dL (3.5-5.1); Alkaline Phosphatase 67 U/L (38-126); Anion Gap 5 mmol/L (4-12); Aspartate Amino Transferase 28 U/L (14-36); Bilirubin,Total 0.6 mg/dL (0.2-1.3); Blood Urea Nitrogen 12 mg/dL (7-17); Calcium 8.7 mg/dL (8.4-10.2); Carbon Dioxide 27 mmol/L (22-30); Chloride 106 mmol/L (98-107); Estimated CRCL calculation 73 ml/min; Estimated Glomerular Filt Rate > 60; Glucose 96 mg/dL (65-110); Magnesium 1.9 mg/dL (1.6-2.3); Potassium 3.9 mmol/L (3.4-5.0); Sodium 138 mmol/L (137-145)
[2023-07-23] MEDS: amLODIPine BESYLATE 5 MG TABLET PO (08:40)
[2023-07-23] MEDS: CITALOPRAM HYDROBROMIDE 20 MG TABLET PO (08:40)
[2023-07-23] MEDS: predniSONE 10 MG TABLET PO (08:41)
[2023-07-23] MEDS: NEBIVOLOL HCL 5 MG TABLET 10 MG PO (08:44)
[2023-07-23] MEDS: methocarbamoL 750 MG TABLET PO (08:53)
[2023-07-23] MEDS: ACETAMINOPHEN 325 MG TABLET 650 MG PO (08:53)
[2023-07-23] MEDS: azaTHIOprine 50 MG TABLET 150 MG PO (09:02)
[2023-07-23] MEDS: traMADol HCL (*CRX) 50 MG TABLET 100 MG PO ×2 (10:41→17:59)
[2023-07-23] MEDS: CIPROFLOXACIN 250 MG TABLET PO ×2 (12:56→20:09)
[2023-07-23] MEDS: APIXABAN 5 MG TABLET PO ×2 (12:56→17:58)
[2023-07-23] MEDS: CIPROFLOXACIN 500 MG TAB PO ×2 (12:56→20:09)
--- NOTE | 2023-07-23 14:13 | PM.IMPN ---
Progress Note: A&P Assessment and Plan (1) Syncope: Code(s): R55 - Syncope and collapse Status: Acute Assessment and Plan: ECHO WNL Head CT showed normal aging brain Dopplers ordered Orthostatic vitals tele monitoring BC pending CXR negative (2) Frequent falls: Code(s): R29.6 - Repeated falls Status: Acute Assessment and Plan: PT/OT evaluation will continue Eliquis due to history of DVT, but discussed with patient increased of bleeding with falls while on anticoagulant PRN pain medication for shoulder pain (3) Hyperlipidemia: Code(s): E78.5 - Hyperlipidemia, unspecified Status: Acute Assessment and Plan: continue home meds (4) Hypertension: Code(s): I10 - Essential (primary) hypertension Status: Chronic Assessment and Plan: continue to monitor continue home meds (5) Rheumatoid arthritis: Code(s): M06.9 - Rheumatoid arthritis, unspecified Status: Chronic Assessment and Plan: Continue home meds Subjective Date/time seen: 07/23/23 14:13 Interval history: Patient in no acute distress, lying in bed. She reports shoulder pain, but denies chest pain or SOB. Discussed her treatment with Cipro prescribed prior to admission by her PCP. She took one day's worth previously. She was told she had E coli in her urine and continues to be symptomatic despite clean UA on admission. Will continue full course of Cipro as we do not have access to records or culture. Review of Systems Review of Systems: All systems reviewed & are unremarkable except as noted in HPI and below Exam Narrative: General: Nontoxic-appearing female supine in bed. HEENT: Normocephalic, atraumatic. PERRLA, EOMI. Neck: Supple. Respiratory: Lungs are clear to auscultation Cardiovascular: RRR with S1-S2. Gastrointestinal: Abdomen is soft, nontender, and nondistended with positive bowel sounds. Skin: Warm and dry. Scattered bruising on the left upper extremity. Erythema of the lower extremities related to venous stasis. Extremities: No cyanosis or clubbing. 2+ lower extremity edema. No palpable knots or cords. Neurological: Alert and oriented. Cranial nerves 2-12 are grossly intact. Speech is clear. No facial asymmetry. Generalized weakness without focal findings. Psychiatric: Pleasant and cooperative with appropriate mood and affect. Objective Data Vital Signs Vital Signs: Vital Signs - 24 hr 07/22/23 15:00 07/22/23 17:15 07/22/23 17:21 Temperature 98 F Pulse Rate 73 75 74 Respiratory Rate 15 15 18 Blood Pressure 128/57 L 151/77 H 146/76 H Pulse Oximetry 100 100 96 Oxygen Delivery Oxygen Flow Rate 07/22/23 18:00 07/22/23 20:27 07/22/23 20:25 Temperature 97.6 F 98.0 F Pulse Rate 70 64 Respiratory Rate 16 18 Blood Pressure 151/58 H 142/59 H Pulse Oximetry 98 97 97 Oxygen Delivery Nasal Cannula Oxygen Flow Rate 2 07/22/23 20:00 07/23/23 00:04 07/23/23 04:00 Temperature Pulse Rate 71 68 67 Respiratory Rate Blood Pressure Pulse Oximetry Oxygen Delivery Oxygen Flow Rate 07/23/23 05:09 07/23/23 08:44 07/23/23 08:36 Temperature 98.0 F Pulse Rate 68 70 Respiratory Rate 20 Blood Pressure 152/60 H Pulse Oximetry 98 92 Oxygen Delivery Nasal Cannula Oxygen Flow Rate 1 07/23/23 08:50 07/23/23 08:00 07/23/23 13:16 Temperature Pulse Rate Respiratory Rate Blood Pressure Pulse Oximetry Oxygen Delivery Room Air Room Air Room Air Oxygen Flow Rate Intake/Output Intake/Output: Intake & Output 07/20/23 07/21/23 07/22/23 07/23/23 23:59 23:59 23:59 23:59 Intake Total 1000 268 Output Total 400 400 Balance 600 -132 Meds/Results Medications: Active Medications Generic Name Dose Route Start Last Admin Trade Name Freq PRN Reason Stop Dose Admin Acetaminophen 650 mg 07/22/23 16:09 07/23/23 08:53 Aceta
[2023-07-23] MEDS: LORazepam (*CRX) 0.5 MG TABLET PO (17:59)
[2023-07-23] MEDS: AMITRIPTYLINE HCL 25 MG TABLET 50 MG PO (20:08)
[2023-07-23] MEDS: PREGABALIN (*CRX) 75 MG CAPSULE 150 MG PO (20:08)
[2023-07-23] MEDS: ZOLPIDEM TARTRATE (*CRX) 5 MG TABLET 10 MG PO (20:09)
[2023-07-23] MEDS: LOPERAMIDE HCL 2 MG CAPSULE PO (21:41)
[2023-07-24] VITALS (8 sets, daily range): BP systolic 141–151; BP diastolic 72–87; PULSE 63–74; RESP 18–20; TEMP 36.8; O2SAT 90–92
[2023-07-24 05:49] LABS: Hematocrit 36.3 % (37.0-47.0); Mean Corpuscular HGB Conc 30.3 g/dl (32-36); Mean Corpuscular Hemoglobin 30.1 pg (26-34); Mean Corpuscular Volume 99.5 fl (80-100); Mean Platelet Volume 10.6 fl (7.4-10.4); Platelet Count Result 218 k/mm3 (150-375); Red Blood Count 3.65 M/mm3 (4.2-5.4); Red Cell Distribution Width 15.6 % (11.5-14.5); White Blood Count 6.3 K/mm3 (4.5-10.0)
[2023-07-24 05:58] LABS: Anion Gap 6 mmol/L (4-12); Blood Urea Nitrogen 13 mg/dL (7-17); Carbon Dioxide 28 mmol/L (22-30); Chloride 106 mmol/L (98-107); Estimated CRCL calculation 73 ml/min; Estimated Glomerular Filt Rate > 60; Glucose 106 mg/dL (65-110); Potassium 3.8 mmol/L (3.4-5.0); Sodium 140 mmol/L (137-145)
--- NOTE | 2023-07-24 07:27 | ECG_ITS ---
Measurements Intervals [place] Rate: 66 P: 31 WV: 199 QRS: -24 QRSD: 104 T: 4 QT: 383 QTc: 401 Interpretive Statements SINUS RHYTHM LOW QRS VOLTAGE IN PRECORDIAL LEADS [QRS DEFLECTION < 1.0 mV IN CHEST LEADS] POOR R-WAVE PROGRESSION COMPARED TO ECG 07/22/2023 13:00:23 NO SIGNIFICANT CHANGES Electronically Signed On 07-24-2023 12:37:50 CDT by Wiliam Pretty M.D.
[2023-07-24] MEDS: traMADol HCL (*CRX) 50 MG TABLET 100 MG PO (11:10)
[2023-07-24] MEDS: CIPROFLOXACIN 250 MG TABLET PO (11:12)
[2023-07-24] MEDS: azaTHIOprine 50 MG TABLET 150 MG PO (11:13)
[2023-07-24] MEDS: NEBIVOLOL HCL 5 MG TABLET 10 MG PO (11:14)
[2023-07-24] MEDS: APIXABAN 5 MG TABLET PO (11:15)
[2023-07-24] MEDS: amLODIPine BESYLATE 5 MG TABLET PO (11:15)
[2023-07-24] MEDS: CITALOPRAM HYDROBROMIDE 20 MG TABLET PO (11:15)
[2023-07-24] MEDS: predniSONE 10 MG TABLET PO (11:15)
[2023-07-24] MEDS: CIPROFLOXACIN 500 MG TAB PO (11:15)
--- NOTE | 2023-07-24 15:08 | PM.DS ---
DS: Admitting Diagnosis Discharge Date 07/24/23 Admitting Diagnosis fall DS: Discharge Diagnosis Discharge Diagnosis (1) Syncope: Code(s): R55 - Syncope and collapse Status: Acute Assessment and Plan: ECHO WNL Head CT showed normal aging brain Dopplers showed bilateral DVT in femoral veins Orthostatic vitals BC pending, NGTD CXR negative (2) Frequent falls: Code(s): R29.6 - Repeated falls Status: Acute Assessment and Plan: PT/OT evaluation, HH offered to patient (3) Hyperlipidemia: Code(s): E78.5 - Hyperlipidemia, unspecified Status: Chronic (4) Hypertension: Code(s): I10 - Essential (primary) hypertension Status: Chronic (5) Rheumatoid arthritis: Code(s): M06.9 - Rheumatoid arthritis, unspecified Status: Chronic DS: Summary Hospital Course Hospital Course: Patient is a 68-year-old female with PMH of rheumatoid arthritis, hypertension, hyperlipidemia, anxiety, and depression admitted from home for evaluation after a fall. The patient provides the following history. She had a doctor's appointment on Sunday and sustained a fall at that time after slipping on some gravel. She did not sustain any injuries and was able to go home without issue. Later that afternoon she had another fall however does not recall how she fell and she wonders if she may have blacked out. She woke up on her back on the floor and was unable to get herself up so she lay on the floor for upwards of 36 hours before calling EMS for lift assist. She declined transport at that time. Today she fell while trying to get out of bed and decided to come in for evaluation. She complains of ongoing pain in her right shoulder which is not necessarily unusual for her and pain in her left knee from the fall. She endorses dysuria but is currently on ciprofloxacin for a urinary tract infection. She has had some loose stools as well. She denies headache, visual changes, focal weakness, paresthesias, facial droop, difficulty speaking and swallowing, fever, chills, sweats, cold and flu symptoms, chest and pleuritic pain, shortness of breath, nausea, and vomiting. In the ED: She was afebrile on arrival with stable blood pressures. Labs were significant for WBC count of 8.0, hemoglobin 11.6, sodium 136, BUN 15, creatinine 0.80. urine was positive for trace ketones. Brain CT showed no acute findings. Cervical spine CT showed no fracture but did note severe cervical spondylosis. Left knee x-ray showed severe left knee osteoarthritis and moderate size left knee joint effusion with loose bodies. Right shoulder x-ray showed polyarticular osteoarthritis. Chest x-ray showed no acute cardiopulmonary disease. EKG showed a sinus rhythm with normal intervals and no ST segment elevations or depressions. PT/OT ordered for eval and home health arranged. BLE dopplers showed femoral vein DVT in both legs. Patient Eliquis dose increased to 10 mg BID for 10 days. Work up otherwise unrevealing. Patient sent home with IC and encouraged pulse ox for monitoring her oxygenation at home especially when she is on severe pain. She is stable for d/c home and will follow up with her PCP later this week. Status at Discharge Functional status at discharge: uses cane/walker Overall status at discharge: patient is progressing back to baseline Time Spent with Patient Time attestation: Total time spent providing and/or coordinating discharge services: Exam Narrative: General: Nontoxic-appearing female supine in bed. HEENT: Normocephalic, atraumatic. PERRLA, EOMI. Neck: Supple. Respiratory: Lungs are clear to auscultation Cardiovascular: RRR with S1-S2. Gastrointestinal: Abdomen is soft, nontender, and nondistended with positive bowel sounds. Skin: Warm and dry. Scattered bruising on the left upper extremity. Erythema of the lower extremities related to venous stasis. Extremities: No cyanosis or clubbing. 2+ lower extre
--- NOTE | 2023-08-02 14:30 | PC.NURSE ---
Blood cx are negative
== END 2023-07-24 15:32 | disposition home or self-care (01) ==
LOC: ANHED 14:57 → ANH2MED 07-23 14:55
PROVIDERS: Nurse Practitioner; Physician Assistant; Admitting Provider Internal Medicine; Emergency Provider Emergency Medicine; PCP Internal Medicine; Visit Provider Hospitalist
DX: R55 Syncope and collapse (principal); I82.413 Acute embolism and thrombosis of femoral vein, bilateral; R29.6 Repeated falls; E78.5 Hyperlipidemia, unspecified; I10 Essential (primary) hypertension; M05.79 Rheumatoid arthritis with rheumatoid factor of multiple sites without organ or systems involvement; G89.29 Other chronic pain; M25.511 Pain in right shoulder; M25.462 Effusion, left knee; M17.12 Unilateral primary osteoarthritis, left knee; R62.7 Adult failure to thrive; Z68.42 Body mass index [BMI] 45.0-49.9, adult; Z73.89 Other problems related to life management difficulty; M47.812 Spondylosis without myelopathy or radiculopathy, cervical region; I34.81 Nonrheumatic mitral (valve) annulus calcification; R94.31 Abnormal electrocardiogram [ECG] [EKG]; F32.A Depression, unspecified; M79.7 Fibromyalgia; Z79.1 Long term (current) use of non-steroidal anti-inflammatories (NSAID); Z79.01 Long term (current) use of anticoagulants; Z79.899 Other long term (current) drug therapy
CPT/HCPCS: 36415; 70450; 71045; 72125; 73030; 73562; 80048; 80053; 81001; 82550; 83605; 83735; 85025; 85027; 85610; 85730; 86140; 87040; 93005; 93306; 93880; 93970; 96361; 96374; 96375; 97110; 97161; 97166; 97530; 97535; 99285; A9270; G0378; J2270; J2405; J7030; J7512

== ENCOUNTER 2023-08-02 11:01 | Observation (INO) | payer MEDICARE, SELFPAY ==
[2023-08-02] VITALS (26 sets, daily range): BP systolic 128–162; BP diastolic 62–80; PULSE 69–83; RESP 13–20; TEMP 36.4–36.6; O2SAT 88–100; BMI 51.5
--- NOTE | ~2023-08-02 | CT_ITS ---
Noncontrast CT scan of the cervical spine Technique: Multiple contiguous axial [address] images of the cervical spine were obtained and rec onstructed in 2D sagittal and coronal planes on the acquisition scanner. Dose reduction technique was used on this scan by utilizing automated exposure control, adjustment of the mA and/or kV according to patient size. The dose-length product (DLP) was 513.27 mGy-cm. Clinical History: Pain COMPARISON: 07/22/2023 Findings: No fractures or dislocations. There are facet joint degenerative changes throughout the ce rvical spine. There is right neural foraminal narrowing at C3-C4. There is right neural foraminal ravinder rowing at C5-C6 and C6-C7. No prevertebral soft tissue swelling. Impression: No fracture or subluxation of the cervical spine. Degenerative change, as above. Reviewed, dictated and finalized at [facility]. Impression: No fracture or subluxation of the cervical spine. Degenerative change, as above.
--- NOTE | ~2023-08-02 | NM_ITS ---
EXAMINATION: NM lung vent and perfusion DATE: 08/02/2023 15:10 INDICATION: Hypoxia. TECHNIQUE: 16.2 mCi Xenon-133 was administered for ventilation images. 5.5 mCi Tc-99m MAA was adminis tered intravenously for perfusion images. Scintigraphic images of the chest were obtained. COMPARISON: Chest 2 views 08/02/2023 FINDINGS: Ventilation images demonstrate small defects in the lower lobes. Perfusion images show matched small defects in the lower lobes. IMPRESSION: 1. Low probability for pulmonary embolism. Reviewed, dictated and finalized at location [facility].
--- NOTE | ~2023-08-02 | CT_ITS ---
Non-contrast Head CT History: Head injury COMPARISON: 07/22/2023 Technique: Axial non-contrast imaging of the brain was performed. Dose reduction technique was used on this scan by utilizing automated exposure control and iterative reconstruction technique. The dose -length product (DLP) was 605.33 mGy-cm. Findings: There is no evidence of intracranial hemorrhage, mass lesion, or acute infarct. Brain par enchyma appears normal. The ventricles and subarachnoid spaces are normal in size. The calvarium ap pears normal. The visualized paranasal sinuses and mastoid air cells are clear. Impression: No significant abnormality seen. Reviewed, dictated and finalized at location . Impression: No significant abnormality seen.
--- NOTE | ~2023-08-02 | XR_ITS ---
Clinical Indication: Hypoxia PA and lateral views of the chest: Comparison: 07/22/2023 Findings: Stable calcified right basilar pulmonary nodules. The lungs are otherwise clear, without ev idence of focal consolidation or pleural effusion. Cardiomediastinal silhouette is within normal snow its. Stable calcified right hilar lymph node. Bones and soft tissues are unremarkable. Impression: No acute abnormality. Evidence of prior granulomatous disease, unchanged. Reviewed, dictated and finalized at location [facility]. Impression: No acute abnormality. Evidence of prior granulomatous disease, unchanged.
[2023-08-02 11:58] LABS: Basophils Percent Auto 0.4 % (0.2-1.2); Eosinophils Absolute Auto 0.1 K/mm3 (0-0.3); Eosinophils Percent Auto 1.3 % (0-4.4); Hematocrit 37.5 % (37.0-47.0); Hemoglobin 11.3 g/dL (12.0-15.0); Immature Granulocyte Absolute 0.04 K/mm3 (0.00-0.031); Immature Granulocyte Percent A 0.4 % (0-0.5); Lymphocytes Absolute Auto 1.22 K/mm3 (0.9-3.2); Lymphocytes Percent Auto 13.7 % (18.3-44.2); Mean Corpuscular HGB Conc 30.1 g/dl (32-36); Mean Corpuscular Hemoglobin 30.4 pg (26-34); Mean Corpuscular Volume 100.8 fl (80-100); Mean Platelet Volume 10.7 fl (7.4-10.4); Monocytes Absolute Auto 0.9 K/mm3 (0.1-0.6); Monocytes Percent Auto 10.3 % (2.6-8.5); Neutrophils Absolute Auto 6.6 K/mm3 (1.3-6.7); Neutrophils Percent Auto 73.9 % (45.5-73.1); Platelet Count Result 236 k/mm3 (150-375); Red Blood Count 3.72 M/mm3 (4.2-5.4); Red Cell Distribution Width 15.9 % (11.5-14.5); White Blood Count 8.9 K/mm3 (4.5-10.0)
[2023-08-02 12:10] LABS: INR 1.3; Prothrombin Time 17.2 Seconds (11.1-14.7)
[2023-08-02 12:23] LABS: Alanine Aminotransferase 26 U/L (6-35); Albumin Level 4.1 g/dL (3.5-5.1); Alkaline Phosphatase 81 U/L (38-126); Anion Gap 5 mmol/L (4-12); Aspartate Amino Transferase 40 U/L (14-36); Bilirubin,Total 0.7 mg/dL (0.2-1.3); Blood Urea Nitrogen 24 mg/dL (7-17); Calcium 9.3 mg/dL (8.4-10.2); Carbon Dioxide 29 mmol/L (22-30); Chloride 103 mmol/L (98-107); Estimated CRCL calculation 70 ml/min; Estimated Glomerular Filt Rate > 60; Glucose 91 mg/dL (65-110); Potassium 4.6 mmol/L (3.4-5.0); Sodium 137 mmol/L (137-145)
--- NOTE | 2023-08-02 12:37 | ED.FALL ---
HPI - Fall General Chief Complaint: Fall Stated Complaint: right shoulder dislocated x 30 years History of Present Illness HPI Narrative: 68-year-old female presents to the emergency room via EMS from home after multiple falls. Patient states that she has been taking oxycodone for a right shoulder injury that occurred multiple years ago. Patient states after taking the oxycodone she becomes lightheaded and falls. EMS states that they have been on scene of weekly, to assist the patient in standing up after she has fallen. EMS was on scene last night after she fell, assisting her back up. Patient called EMS again this morning for lift assist following a fall. Patient states that she struck her head after falling. Patient is anticoagulated with Eliquis due to a DVT. Patient unsure if she had a positive LOC. Patient also complaining of neck and right shoulder pain. Patient was ambulatory on scene Related Data Home Medications Medication Instructions Recorded Confirmed nebivolol 10 mg tablet (Bystolic) 10 mg PO DAILY 03/13/19 07/22/23 azathioprine 50 mg tablet 50 mg PO DAILY 09/13/20 07/22/23 amitriptyline 50 mg tablet 50 mg PO HS 07/22/23 07/22/23 amlodipine 5 mg tablet 5 mg PO DAILY 07/22/23 07/22/23 apixaban 5 mg tablet (Eliquis) 5 mg PO BID 07/22/23 07/22/23 azathioprine 100 mg tablet 100 mg PO DAILY 07/22/23 07/22/23 ciprofloxacin HCl 750 mg tablet 750 mg PO BID 07/22/23 07/22/23 citalopram 20 mg tablet (Celexa) 20 mg PO DAILY 07/22/23 07/22/23 methocarbamol 750 mg tablet 750 mg PO TID PRN muscle spasms 07/22/23 07/22/23 and pain prednisone 10 mg tablet 10 mg PO DAILY 07/22/23 07/22/23 pregabalin 150 mg capsule (Lyrica) 150 mg PO HS 07/22/23 07/22/23 sulfasalazine 500 mg 0.5 g PO BID 07/22/23 07/22/23 tablet,delayed release tramadol 100 mg tablet 100 mg PO Q6H PRN Pain (Scale 07/22/23 07/22/23 Score 4-6) zolpidem 12.5 mg tablet,extended 12.5 mg PO HS 07/22/23 07/22/23 release,multiphase (Ambien CR) loperamide 2 mg capsule 2 mg PO PRN PRN Diarrhea 07/23/23 07/23/23 (Anti-Diarrheal (loperamide)) Allergies Allergy/AdvReac Type Severity Reaction Status Date / Time hydroxychloroquine Allergy Severe vertigo Verified 08/02/23 11:12 Iodinated Contrast Media Allergy Severe Anaphylaxis Verified 08/02/23 11:12 Latex, Natural Rubber Allergy Severe SWELLING Verified 08/02/23 11:12 WITH CONTACT methotrexate Allergy Severe Cramping Verified 08/02/23 11:12 of the Muscles tramadol Allergy Severe Vomiting Verified 08/02/23 11:12 latex Allergy Unknown Swelling Verified 08/02/23 11:12 shellfish derived Allergy Unknown Hives Verified 08/02/23 11:12 sulfasalazine Allergy Unknown Cramping Verified 08/02/23 11:12 of the Muscles Review of Systems Review of Systems: All systems reviewed unremarkable except as noted in HPI PMFSH Past Medical History Medical History ALETA positive Anxiety Depression Fibromyalgia Generalized osteoarthritis of multiple sites Hyperlipidemia Hypertension Rheumatoid arthritis with rheumatoid factor of multiple sites without organ or systems involvement (~2017) Surgical History Surgical History History of biopsy of bladder History of hysterectomy Family History Family History Father Heart disease Emphysema lung Grandparent Heart disease Mother Heart disease Macular degeneration Dementia Cerebrovascular accident Emphysema lung Social History Social History Social History: Surrogate medical decision maker: Homero Bearden, friend. Code status: Full code. Smoking status: Never smoker Alcohol intake: former Do You Feel Safe in your Home?: Yes Lack of Transportation: No Lack of Food: Never True Current Housing: [facility]
--- NOTE | 2023-08-02 13:43 | PC.NURSE ---
Attempted to take patient off O2. Patient's oxygen sat dropped down to 88% on room air. patient placed back on 2L NC and provider made aware. patient is 96% on 2L oxygen
[2023-08-02 13:56] LABS: Appearance Urine Clear (Clear); Bacteria Urine None Seen /hpf; Bilirubin Urine Negative (Negative); Blood Urine Negative (Negative); Color Urine Yellow (Yellow); Glucose Urine UA Negative (Negative); Ketones Urine 1+ mg/dL (Negative); Leukocyte Esterase Ur Negative LEU/UL (Negative); Need Manual Microscopic Reviewed; Nitrate Urine Negative (Negative); Protein Urine 1+ mg/dL (Negative); RBC Urine 0-2 /hpf (0-2); Specific Grav Ur 1.027 (1.001-1.035); Squamous Epithelial Cell Urine None Seen /hpf (Few); Urobilinogen Urine 0.2 mg/dL (<2.0); WBC Urine 0-5 /hpf (0-3)
[2023-08-02 13:59] LABS: Add Urine Microscopic? YES
--- NOTE | 2023-08-02 18:30 | ADMGEN ---
This patient, Evelia Wadsworth, was admitted to Medical Room 346-01. Patient/family oriented to hospital policies and general routines including ID bracelet, bed and alarms, visiting hours, pain management, procedures, bathroom and other care routines, personal items, smoking policy, room service/diet, and visiting hours. Information on how to activate the Rapid Response Team has been discussed. Patient/Family are encouraged to report perceived risks to care and to ask questions if they do not understand what they are told or what they should do.
--- NOTE | 2023-08-02 20:50 | PM.IMHP ---
H&P: HPI History of Present Illness Date/Time: 08/02/23 20:50 Chief Complaint: fall Narrative: This is a 68-year-old female past medical history significant for multiple recurrent,falls, morbid obesity, hoarding. Patient with recent admission with extensive workup. Patient can not really tell how she fell denies any loss of consciousness denies syncope or near syncope ,no fevers, no rigors ,no chills, no nausea, no vomiting, no diarrhea. patient had an episode of hypoxia while she went on a road test in the emergency room prior to planning discharging her home was placed on 2 L of nasal cannula and placed in observation for further evaluation management and treatment. Non-contrast Head CT History: Head injury COMPARISON: 07/22/2023 Technique:? Axial non-contrast imaging of the brain was performed. Dose reduction technique was used on this scan by utilizing automated exposure control and iterative reconstruction technique. The dose-length product (DLP) was 605.33 mGy-cm. Findings:? There is no evidence of intracranial hemorrhage, mass lesion, or acute infarct.? Brain parenchyma appears normal.? The ventricles and subarachnoid spaces are normal in size.? The calvarium appears normal.? The visualized paranasal sinuses and mastoid air cells are clear. Impression: No significant abnormality seen. EXAMINATION: NM lung vent and perfusion DATE:? 08/02/2023 15:10 INDICATION: Hypoxia. TECHNIQUE: 16.2 mCi Xenon-133 was administered for ventilation images. 5.5 mCi Tc-99m MAA was administered intravenously for perfusion images.? Scintigraphic images of the chest were obtained. COMPARISON: Chest 2 views 08/02/2023 FINDINGS: Ventilation images demonstrate small defects in the lower lobes. Perfusion images show matched small defects in the lower lobes. IMPRESSION: 1.? Low probability for pulmonary embolism Clinical Indication: Hypoxia ?PA and lateral views of the chest: Comparison: 07/22/2023 Findings: Stable calcified right basilar pulmonary nodules. The lungs are otherwise clear, without evidence of focal consolidation or pleural effusion.? Cardiomediastinal silhouette is within normal limits. Stable calcified right hilar lymph node. Bones and soft tissues are unremarkable. ? Impression: ? No acute abnormality. Evidence of prior granulomatous disease, unchanged. Review of Systems Review of Systems: fall Constitutional: Constitutional: Denies chills, Denies fever(s), Denies malaise, Denies night sweats and Denies weakness Eyes: Eyes: Denies change in vision ENT: Denies dysphagia and Denies odynophagia Cardiovascular: Cardiovascular: Denies chest pain, Denies radiating jaw, neck or arm pain and Denies palpitations Respiratory: Respiratory: Denies chest congestion, Denies cough, Denies excessive phlegm production, Denies pain on inspiration and Denies dyspnea Gastrointestinal: Gastrointestinal: Denies abdominal pain, Denies dyspepsia, Denies diarrhea, Denies nausea and Denies vomiting Genitourinary: Genitourinary: Denies dysuria Musculoskeletal: Musculoskeletal: Reports arthralgias Integumentary/Breasts: Skin/Breast: Denies rash Neurologic: Denies abnormal gait, Denies focal weakness and Denies Sensory deficit (Neuro) Psychiatric: Psychiatric: Reports no additional psychiatric complaints and Reports as per HPI Endocrine: Endocrine: Denies cold intolerance, Denies fatigue, Denies flushing, Denies heat intolerance, Denies polyphagia, Denies polydipsia, Denies polyuria and Denies palpitations Hematologic/Lymphatic: Hematologic/Lymphatic: Reports no additional hematologic/lymphatic complaints and Reports as per HPI Allergic/Immunologic: Allergic/Immunologic: Reports no additional allergic/immunologic complaints and Reports as per HPI PMFSH Past Medical History Medical History ALETA positive Anxiety Depression Fibromyalgia Generalized ost
[2023-08-02] MEDS: ALPRAZolam (*CRX) 0.25 MG TABLET PO (22:00)
[2023-08-03] VITALS (11 sets, daily range): BP systolic 151–167; BP diastolic 56–89; PULSE 66–81; RESP 16–18; TEMP 36.4–37; O2SAT 96–98
[2023-08-03] MEDS: CITALOPRAM HYDROBROMIDE 20 MG TABLET PO ×2 (09:04→16:20)
[2023-08-03] MEDS: APIXABAN 5 MG TABLET PO ×2 (09:04→20:27)
[2023-08-03] MEDS: azaTHIOprine 50 MG TABLET 150 MG PO (09:04)
[2023-08-03] MEDS: predniSONE 10 MG TABLET PO (09:04)
[2023-08-03] MEDS: amLODIPine BESYLATE 5 MG TABLET PO (09:05)
[2023-08-03] MEDS: NEBIVOLOL HCL 5 MG TABLET 10 MG PO (09:06)
--- NOTE | 2023-08-03 11:54 | PM.IMPN ---
Progress Note: A&P Assessment and Plan (1) Hypoxia: Code(s): R09.02 - Hypoxemia Status: Acute Assessment and Plan: On supplemental O2 by SD which has now been tapered off VQ scan low prob cxr no active disease continue to monitor. ambulate (2) Recurrent falls: Code(s): R29.6 - Repeated falls Status: Acute Assessment and Plan: pt/ot to see and evaluate on pain medications. recurrent falls since past 2 weeks. mentions pain meds were recently switched. (3) Hypertension: Code(s): I10 - Essential (primary) hypertension Status: Chronic Assessment and Plan: continue home meds continue to monitor (4) Rheumatoid arthritis: Code(s): M06.9 - Rheumatoid arthritis, unspecified Status: Chronic Assessment and Plan: on DMARDS (5) Hoarding disorder: Code(s): F42.3 - Hoarding disorder Status: Acute Assessment and Plan: Follow up in the outpatient setting Plan recent acute DVT on eliquis Subjective Date/time seen: 08/03/23 11:54 Interval history: feels well wants to go home. no new compalints. Review of Systems Review of Systems: All systems reviewed & are unremarkable except as noted in HPI and below Exam Narrative: GENERAL:?well-appearing, well-nourished, morbidly obese HEAD: Normocephalic, atraumatic. EYES: Conjunctivae normal, PERRLA and EOMI. ENT: External nose normal, Nares clear, no rhinorrhea or epistaxis.? Mucous membranes moist.? NECK: Supple.? No meningeal signs. No adenopathy or masses.? No carotid bruits or JVD CHEST: Clear to auscultation.? No respiratory distress.? No wheezes rales or rhonchi. No tenderness. HEART: Regular rate and rhythm.? No murmur heard.? Normal peripheral pulses. ABDOMEN: Soft, nontender, nondistended, normal active bowel sounds. BACK:? Midline cervical, no step-offs, no bony abnormality; FROM EXTREMITIES:? Right shoulder:? Diffuse tenderness limited range of motion SKIN: Warm, dry, no rash. No noted wounds NEURO: No focal deficits.? Alert and oriented x3. MAEW. CN's II-XI intact bilaterally PSYCH: Cooperative. Normal mood and affect. Objective Data Vital Signs Vital Signs: Vital Signs - 24 hr 08/02/23 12:10 08/02/23 12:15 08/02/23 12:31 Temperature Pulse Rate 71 71 70 Respiratory Rate 17 15 17 Blood Pressure 154/64 H Pulse Oximetry 91 96 Oxygen Delivery 08/02/23 12:49 08/02/23 13:00 08/02/23 13:01 Temperature Pulse Rate 69 70 71 Respiratory Rate 15 19 18 Blood Pressure 151/69 H Pulse Oximetry Oxygen Delivery 08/02/23 13:02 08/02/23 13:25 08/02/23 14:03 Temperature Pulse Rate 72 81 75 Respiratory Rate 18 17 17 Blood Pressure Pulse Oximetry 96 Oxygen Delivery 08/02/23 14:16 08/02/23 15:09 08/02/23 15:15 Temperature Pulse Rate 73 75 74 Respiratory Rate 14 14 16 Blood Pressure Pulse Oximetry 97 100 Oxygen Delivery 08/02/23 16:01 08/02/23 16:04 08/02/23 16:15 Temperature Pulse Rate 73 72 73 Respiratory Rate 18 13 Blood Pressure 128/74 Pulse Oximetry Oxygen Delivery 08/02/23 16:30 08/02/23 16:45 08/02/23 16:46 Temperature Pulse Rate 77 75 75 Respiratory Rate 20 20 17 Blood Pressure 158/62 H Pulse Oximetry Oxygen Delivery 08/02/23 19:05 08/02/23 16:00 08/02/23 20:07 Temperature 98 F 97.8 F Pulse Rate 72 77 78 Respiratory Rate 16 16 Blood Pressure 162/80 H 152/68 H Pulse Oximetry 99 95 Oxygen Delivery 08/02/23 20:00 08/03/23 00:00 08/03/23 01:17 Temperature 97.6 F Pulse Rate 72 79 81 Respiratory Rate 18 Blood Pressure 155/89 H Pulse Oximetry 97 Oxygen Delivery 08/03/23 04:00 08/03/23 04:00 08/03/23 09:06 Temperature 97.6 F Pulse Rate 78 80 78 Respiratory Rate 18 Blood Pressure 151/70 H Pulse Oximetry 98 Oxygen Delivery 08/03/23 08:00 08/03/23 10:13 Temperature Pulse Rate Respiratory Rate Blood Pressure
[2023-08-03] MEDS: ACETAMINOPHEN 325 MG TABLET 650 MG PO (14:35)
[2023-08-03] MEDS: oxyCODONE HCL (*CRX) 5 MG TAB IR 15 MG PO (20:27)
[2023-08-03] MEDS: PREGABALIN (*CRX) 75 MG CAPSULE 150 MG PO (20:27)
[2023-08-04] VITALS: PULSE 58
[2023-08-04 04:09] VITALS: PULSE 61
[2023-08-04 04:59] VITALS: BP 151/68; PULSE 70; RESP 18; TEMP 36.2; O2SAT 99
[2023-08-04 05:57] LABS: Basophils Percent Auto 0.4 % (0.2-1.2); Eosinophils Absolute Auto 0.1 K/mm3 (0-0.3); Eosinophils Percent Auto 1.6 % (0-4.4); Hematocrit 37.8 % (37.0-47.0); Hemoglobin 11.8 g/dL (12.0-15.0); Immature Granulocyte Absolute 0.03 K/mm3 (0.00-0.031); Immature Granulocyte Percent A 0.4 % (0-0.5); Lymphocytes Percent Auto 16.3 % (18.3-44.2); Mean Corpuscular HGB Conc 31.2 g/dl (32-36); Mean Corpuscular Hemoglobin 30.2 pg (26-34); Mean Corpuscular Volume 96.7 fl (80-100); Mean Platelet Volume 10.8 fl (7.4-10.4); Monocytes Absolute Auto 0.7 K/mm3 (0.1-0.6); Monocytes Percent Auto 9.5 % (2.6-8.5); Neutrophils Absolute Auto 5.3 K/mm3 (1.3-6.7); Neutrophils Percent Auto 71.8 % (45.5-73.1); Platelet Count Result 214 k/mm3 (150-375); Red Blood Count 3.91 M/mm3 (4.2-5.4); Red Cell Distribution Width 15.5 % (11.5-14.5); White Blood Count 7.4 K/mm3 (4.5-10.0)
[2023-08-04 06:11] LABS: Alanine Aminotransferase 21 U/L (6-35); Albumin Level 3.9 g/dL (3.5-5.1); Alkaline Phosphatase 77 U/L (38-126); Anion Gap 3 mmol/L (4-12); Aspartate Amino Transferase 24 U/L (14-36); Bilirubin,Total 0.7 mg/dL (0.2-1.3); Blood Urea Nitrogen 12 mg/dL (7-17); Calcium 9.4 mg/dL (8.4-10.2); Carbon Dioxide 32 mmol/L (22-30); Chloride 104 mmol/L (98-107); Estimated CRCL calculation 88 ml/min; Estimated Glomerular Filt Rate > 60; Glucose 111 mg/dL (65-110); Potassium 4.1 mmol/L (3.4-5.0); Sodium 139 mmol/L (137-145)
[2023-08-04 08:00] VITALS: PULSE 66
[2023-08-04 08:37] VITALS: PULSE 64
[2023-08-04] MEDS: APIXABAN 5 MG TABLET PO (08:37)
[2023-08-04] MEDS: amLODIPine BESYLATE 5 MG TABLET PO (08:37)
[2023-08-04] MEDS: predniSONE 10 MG TABLET PO (08:37)
[2023-08-04] MEDS: CITALOPRAM HYDROBROMIDE 20 MG TABLET PO (08:37)
[2023-08-04] MEDS: azaTHIOprine 50 MG TABLET 150 MG PO (08:37)
[2023-08-04] MEDS: NEBIVOLOL HCL 5 MG TABLET 10 MG PO (08:37)
--- NOTE | 2023-08-04 11:47 | PM.DS ---
DS: Admitting Diagnosis Discharge Date 08/04/23 Admitting Diagnosis fall DS: Discharge Diagnosis Discharge Diagnosis (1) Hypoxia: Code(s): R09.02 - Hypoxemia Status: Acute (2) Recurrent falls: Code(s): R29.6 - Repeated falls Status: Acute (3) Hypertension: Code(s): I10 - Essential (primary) hypertension Status: Chronic (4) Rheumatoid arthritis: Code(s): M06.9 - Rheumatoid arthritis, unspecified Status: Chronic (5) Hoarding disorder: Code(s): F42.3 - Hoarding disorder Status: Acute DS: Summary Hospital Course Hospital Course: This is a 68-year-old female past medical history significant for multiple? recurrent,falls,? morbid obesity, hoarding.? Patient with recent admission with extensive workup.? Patient can not really tell how she fell denies any loss of consciousness denies syncope or near syncope ,no fevers, no rigors ,no chills, no nausea, no vomiting, no diarrhea. Patient had an episode of hypoxia and was placed on 2 L of nasal cannula. Oxygen was weened off. patient has frequent falls at home. PT and OT evaluated the patient. Patient did not qualify for SNF nor home health. Patient does have APS following her. patient did not have any fractures seen on imaging. Head CT negative for acute bleed. Her labs and vital signs are stable and she is medically for discharge at this time. Time Spent with Patient Time attestation: Total time spent providing and/or coordinating discharge services: Exam Narrative: GENERAL: Comfortable, no acute distress, morbid obesity HENMT: moist mucous membranes EYES: EOM intact b/l NECK: no lymphadenopathy RESPIRATORY: clear to auscultation, no increased respiratory effort CARDIO: Regular rate and rhythm GI: soft, nontender, bowel sounds present SKIN/EXTREMITIES: multiple bruises in different stages of healing on patient's arms, legs and back NEURO: PROM intact, answers questions appropriately, A&O x4 DS: Data Data Completed and Pending Labs on day of discharge: Labs from last 24 hours 08/04/23 05:25 WBC 7.4 RBC 3.91 L Hgb 11.8 L Hct 37.8 MCV 96.7 MCH 30.2 MCHC 31.2 L RDW 15.5 H Plt Count 214 MPV 10.8 H Immature Gran % (Auto) 0.4 Neut % (Auto) 71.8 Lymph % (Auto) 16.3 L Clay % (Auto) 9.5 H Eos % (Auto) 1.6 Baso % (Auto) 0.4 Lymph # (Auto) 1.20 Clay # (Auto) 0.7 H Eos # (Auto) 0.1 Baso # (Auto) 0.0 Abs Immat Gran (auto) 0.03 Absolute Neuts (auto) 5.3 Absolute Nucleated RBC 0.000 Nucleated RBC % 0.0 Sodium 139 Potassium 4.1 Chloride 104 Carbon Dioxide 32 H Anion Gap 3 L BUN 12 D Creatinine 0.70 Estim Creat Clear Calc 88 Estimated GFR > 60 Glucose 111 H Calcium 9.4 Magnesium 2.0 Total Bilirubin 0.7 AST 24 ALT 21 Alkaline Phosphatase 77 Total Protein 6.0 L Albumin 3.9 Discharge Plan Discharge Attending physician on discharge: Siobhan Pinto Consulting providers: Homero Gallardo Discharging Clinician: Ambreen Cordova Patient Disposition: Home, Self-Care Activity: no preference Diet: heart healthy Patient Instructions: Antibiotic Form Stand Alone Forms: General Discharge Information Follow-up/Referrals: Ramakrishna,MD Irvin [Primary Care Provider] - Discharge Medications: Continued Bystolic 10 mg tablet 10 mg PO DAILY methocarbamol 750 mg Tablet 750 mg PO TID PRN (Reason: muscle spasms and pain) prednisone 10 mg Tablet 10 mg PO DAILY amlodipine 5 mg Tablet 5 mg PO DAILY citalopram [Celexa] 20 mg Tablet 20 mg PO BID azathioprine 100 mg Tablet 150 mg PO DAILY pregabalin [Lyrica] 150 mg Capsule 150 mg PO HS zolpidem [Ambien CR] 12.5 mg Tablet,Ext Release Multiphase 12.5 mg PO HS Eliquis 5 mg Tablet 5 mg PO BID loperamide [Anti-Diarrheal (loperamide)] 2 mg Capsule 2 mg PO PRN PRN (Reason: Diarrhea) oxycodone 15 mg tablet 15
[2023-08-04 12:00] VITALS: PULSE 66
== END 2023-08-04 13:56 | disposition home or self-care (01) ==
LOC: ANHED 15:21 → ANH3MED 18:28 → ANH3MEDSUR 08-07 09:45
PROVIDERS: Internal Medicine; Admitting Provider Student in an Organized Health Care Education/Training Program; Emergency Provider Nurse Practitioner Family; PCP Internal Medicine; Visit Provider General Practice
DX: R09.02 Hypoxemia (principal); M25.511 Pain in right shoulder; W18.39XA Other fall on same level, initial encounter; R29.6 Repeated falls; Z91.81 History of falling; M05.89 Other rheumatoid arthritis with rheumatoid factor of multiple sites; M79.7 Fibromyalgia; I10 Essential (primary) hypertension; E78.5 Hyperlipidemia, unspecified; F41.9 Anxiety disorder, unspecified; F32.A Depression, unspecified; R62.7 Adult failure to thrive; Z68.43 Body mass index [BMI] 50.0-59.9, adult; F42.3 Hoarding disorder; Z79.01 Long term (current) use of anticoagulants; Z79.891 Long term (current) use of opiate analgesic
CPT/HCPCS: 36415; 70450; 71046; 72125; 78582; 80053; 81001; 83735; 85025; 85610; 97161; 97165; 99285; A9270; A9540; A9558; G0378; J7512